=== PATIENT | male | born 1960 | race Hispanic/Latino ===

== ENCOUNTER 2017-08-11 12:50 | Outpatient (CLI) | payer MEDICARE, MEDICAID ==
[2017-08-11] MEDS ORDERED: Gadobenate Dimeglumine 529 MG/1 ML (20ML VIAL) ONE ×2 (13:51)
== END 2017-08-11 12:51 | disposition home or self-care (01) ==
LOC: BICMRI 12:50
PROVIDERS: ATTEND Neurological Surgery
DX: M54.6 Pain in thoracic spine (principal); Q76.2 Congenital spondylolisthesis; M47.812 Spondylosis without myelopathy or radiculopathy, cervical region; M47.896 Other spondylosis, lumbar region; M50.223 Other cervical disc displacement at C6-C7 level; M99.81 Other biomechanical lesions of cervical region; M48.04 Spinal stenosis, thoracic region; Z98.890 Other specified postprocedural states
CPT/HCPCS: 72156; 72157; 72158; A9579

== ENCOUNTER 2018-02-17 09:21 | Outpatient (CLI) | payer MEDICARE, MEDICAID ==
--- NOTE | 2018-02-17 11:04 | RAD ---
CERVICAL SPINE RADIOGRAPHS FOUR VIEWS: Date: 02-17-18 Provided Clinical History: Cervical spondylosis. FINDINGS: No comparisons. Cervical alignment appears normal. Vertebral body heights appear preserved. Changes o f ACDF are noted, C5 through C7. No significant prevertebral soft tissue swelling is apparent. Visual ized lung apices appear clear. IMPRESSION: Cervical post-operative changes as above. POS: [facility]
== END 2018-02-17 09:22 | disposition home or self-care (01) ==
LOC: TBSIIMAG 09:21
PROVIDERS: ATTEND Neurological Surgery
DX: M47.812 Spondylosis without myelopathy or radiculopathy, cervical region (principal); Z98.890 Other specified postprocedural states
CPT/HCPCS: 72040

== ENCOUNTER 2018-04-07 13:42 | Outpatient (CLI) | payer MEDICARE, MEDICAID ==
--- NOTE | 2018-04-07 15:10 | RAD ---
FOUR VIEWS OF THE CERVICAL SPINE: DATE: 03/20/18. COMPARISON: 02/17/18. HISTORY: Reevaluate surgical change. FINDINGS: Open-mouth odontoid view demonstrates a normal-appearing dens in C1-2 articulation. Lateral imaging demonstrates evidence of prior anterior diskectomy infusion at C5-6/C6-7, stable. Stable mild promin ence of the prevertebral soft tissues noted in this region. There is no evidence for hardware failur e. No acute fracture or dislocation is evident. IMPRESSION: Stable postsurgical changes within the cervical spine as detailed above. POS: [facility]
== END 2018-04-07 13:43 | disposition home or self-care (01) ==
LOC: TBSIIMAG 13:42
PROVIDERS: ATTEND Neurological Surgery
DX: M50.30 Other cervical disc degeneration, unspecified cervical region (principal); Z98.890 Other specified postprocedural states
CPT/HCPCS: 72040

== ENCOUNTER 2018-07-05 13:02 | Outpatient (CLI) | payer MEDICARE, MEDICAID ==
--- NOTE | 2018-07-05 14:52 | RAD ---
FOUR VIEWS CERVICAL SPINE: 07/05/18 INDICATION: History of neck surgery. COMPARISON: Prior exam dated 04/07/18. FINDINGS: There is an ACDF spanning C5 through C7 with intervertebral body bone cages at C5-6 and C6-7. The ins trumentation projects in the expected position without gross evidence of complication. Prevertebral s oft tissues appear within normal limits. Spinal alignment is within normal limits. Spondylosis is sta ble. Lung apices are clear. IMPRESSION: Stable postoperative cervical spine. POS: [facility]
== END 2018-07-05 13:03 | disposition home or self-care (01) ==
LOC: TBSIIMAG 13:02
PROVIDERS: ATTEND Neurological Surgery
DX: M54.12 Radiculopathy, cervical region (principal); Z98.890 Other specified postprocedural states
CPT/HCPCS: 72040

== ENCOUNTER 2022-03-31 13:02 | Outpatient (CLI) | payer OTHER, MEDICAID | END 2022-03-31 13:03 | disposition home or self-care (01) | PROVIDERS: ATTEND Student in an Organized Health Care Education/Training Program | DX: Z74.09 Other reduced mobility (principal) ==